=== PATIENT | female | born 1945 | race African-American/Black ===

== ENCOUNTER → 2017-05-21 | Outpatient (REF) | payer MEDICARE, MEDICAID | LOC: M SFHCPLAZ 15:28 | DX: Z11.59 Encounter for screening for other viral diseases (principal); E11.40 Type 2 diabetes mellitus with diabetic neuropathy, unspecified | CPT/HCPCS: 36415; 83036; 86803; 90471; 90636; G0463 ==

== ENCOUNTER → 2017-09-29 | Outpatient (CLI) | payer MEDICARE, MEDICAID ==
--- NOTE | 2017-09-29 10:44 | REP ---
Clinical: Cough. Technique: PA and lateral. Comparison: None. Findings: Mediastinum and cardiac silhouette are grossly within normal limits. Left lower lobe opacities suggest atelectasis/infiltrate and correlation is recommended. No effusion. No pneumothorax. Skeletal structures intact. Pacemaker in satisfactory position. Impression: Left lower lobe opacity suggesting atelectasis/infiltrate. Follow-up to resolution recommended. Signed by Balbir Angelo MD 09/29/2017 10:36 A
== END ==
LOC: EDSEX 10:00 → M RAD 10:00
PROVIDERS: ATTEND Internal Medicine Nephrology
DX: R05 Cough (principal)

== ENCOUNTER 2017-11-21 15:08 | Emergency (ER) | payer MEDICARE, MEDICAID | END 2017-11-21 17:43 | disposition home or self-care (01) | LOC: M ED 15:08 | DX: S30.0XXA Contusion of lower back and pelvis, initial encounter (principal); W06.XXXA Fall from bed, initial encounter; Y92.099 Unspecified place in other non-institutional residence as the place of occurrence of the external cause; Y93.89 Activity, other specified; E11.9 Type 2 diabetes mellitus without complications; I10 Essential (primary) hypertension; M19.90 Unspecified osteoarthritis, unspecified site; M41.24 Other idiopathic scoliosis, thoracic region; M51.34 Other intervertebral disc degeneration, thoracic region; Z79.82 Long term (current) use of aspirin; Z79.01 Long term (current) use of anticoagulants; Z79.899 Other long term (current) drug therapy | CPT/HCPCS: 72072 ==